=== PATIENT | female | born 1965 | race Caucasian/White ===

== ENCOUNTER → 2017-06-02 | Outpatient (CLI) | payer OTHER ==
[~2017-06-02] MED LIST: PRINZIDE 25 MG-1 TAB PO; TYLENOL PM EXTR1 TA1 PO
== END ==
LOC: COL.RAD 08:11
DX: D13.5 Benign neoplasm of extrahepatic bile ducts (principal)

== ENCOUNTER → 2017-06-28 | Outpatient (CLI) | payer OTHER | LOC: MC.RAD 13:14 | DX: Z12.31 Encounter for screening mammogram for malignant neoplasm of breast (principal); D24.1 Benign neoplasm of right breast; D24.2 Benign neoplasm of left breast; Z98.82 Breast implant status ==

== ENCOUNTER → 2018-07-20 | Outpatient (CLI) | payer BC | LOC: MC.RAD 11:25 | DX: Z12.31 Encounter for screening mammogram for malignant neoplasm of breast (principal); Z98.82 Breast implant status ==

== ENCOUNTER 2018-09-26 08:49 | Outpatient (RCR) | payer BC | END 2018-10-26 11:34 | disposition home or self-care (01) | LOC: WSC 08:49 | DX: M47.812 Spondylosis without myelopathy or radiculopathy, cervical region (principal); Z79.899 Other long term (current) drug therapy; R51 Headache ==

== ENCOUNTER → 2019-09-11 | Outpatient (CLI) | payer BC | LOC: MC.RAD 11:17 | DX: Z12.31 Encounter for screening mammogram for malignant neoplasm of breast (principal); Z98.82 Breast implant status ==

== ENCOUNTER → 2020-06-12 | Outpatient (CLI) | payer BC | LOC: ZCOL.LAB 16:46 | DX: Z20.828 Contact with and (suspected) exposure to other viral communicable diseases (principal) ==

== ENCOUNTER → 2020-09-15 | Outpatient (CLI) | payer BC | LOC: MC.RAD 07:30 | DX: Z12.31 Encounter for screening mammogram for malignant neoplasm of breast (principal); Z98.82 Breast implant status ==

== ENCOUNTER 2021-09-19 11:49 | Emergency (ER) | payer BC ==
[~2021-09-19] VITALS: Ht 163.8 cm; Wt 74.1 kg
[2021-09-19] MEDS ORDERED: CEPHALEXIN500 M1 PO (14:36)
[2021-09-19 14:54] VITALS: BP 133/70; PULSE 79; TEMP 98.1
== END 2021-09-19 14:56 | disposition home or self-care (01) ==
LOC: COL.ER 11:49
DX: S60.453A Superficial foreign body of left middle finger, initial encounter (principal); I10 Essential (primary) hypertension; Z79.899 Other long term (current) drug therapy; W45.8XXA Other foreign body or object entering through skin, initial encounter

== ENCOUNTER 2022-08-06 05:57 | Day surgery (SDC) | payer BC ==
[~2022-08-06] VITALS: Ht 162.6 cm; Wt 68.2 kg
[~2022-08-06 05:57] MED LIST changes: +CEPHALEXIN500 M1 PO
[2022-08-06 06:53] VITALS: BP 131/86; PULSE 68; TEMP 96.4
[2022-08-06] MEDS ORDERED: PRIL40 PO (07:03)
[2022-08-06] MEDS ORDERED: WELLBUTRIN XL150 MG PO (07:03)
[2022-08-06] MEDS ORDERED: AMBIEN 5MG TABLE5 MG PO (07:04)
[2022-08-06] MEDS ORDERED: PRINZIDE 25 MG-1 TAB PO (07:04)
[2022-08-06] MEDS ORDERED: ESTRACE 1MG1 MG/TAB PO (07:05)
[2022-08-06] MEDS ORDERED: CALTRATE 600 +1 TAB PO (07:06)
[2022-08-06] MEDS ORDERED: ADVIL200 MG PO (07:06)
[2022-08-06 07:20] VITALS: BP 120/69; PULSE 69; TEMP 97
--- NOTE | 2022-08-06 07:20 | NUR ---
The patient arrived back to [facility] from the endoscopy suite at this time. The patient ambulated from the cart the recliner in her room with the stand by assistance of two nurses and appeared to tolerate the activity well. Post procedure vital signs were started time. The patient agrees to try some grape juice at this time. Call light is within reach. Warm blanket provided. Denies any further needs.
[2022-08-06 07:35] VITALS: BP 119/76; PULSE 65
--- NOTE | 2022-08-06 07:35 | NUR ---
Dr. Collins has spoke with the patient and her about the findings of the procedure. Discharge instructions were reviewed with the patient and her at this time. They both verbalize understanding and have no questions. The patient's IV to her right hand was removed and a pressure dressing was applied to the site. The nurse instructed the patient to get dressed and notify the staff when she is ready to be escorted out.
--- NOTE | 2022-08-06 07:45 | NUR ---
The patient was escorted out via wheelchair to a private vehicle by SHRADDHA Keating. The patient's belongings and discharge paperwork were sent with her. The patient's friend, Fransisco, is here to drive the patient home.
== END 2022-08-06 07:45 | disposition home or self-care (01) ==
LOC: SDCO 05:57
DX: K29.50 Unspecified chronic gastritis without bleeding (principal); K21.9 Gastro-esophageal reflux disease without esophagitis; Z79.899 Other long term (current) drug therapy
CPT/HCPCS: J2704; J7120

== ENCOUNTER → 2023-02-02 | Outpatient (CLI) | payer BC ==
[~2023-02-02] MED LIST changes: +ADVIL200 MG PO; +AMBIEN 5MG TABLE5 MG PO; +CALTRATE 600 +1 TAB PO; +ESTRACE 1MG1 MG/TAB PO; +PRIL40 PO; +WELLBUTRIN XL150 MG PO
== END ==
LOC: MC.RAD 07:04
DX: Z12.31 Encounter for screening mammogram for malignant neoplasm of breast (principal)

== ENCOUNTER 2023-02-08 13:00 | Outpatient (RCR) | payer OTHER | END 2023-02-08 16:00 | disposition home or self-care (01) | LOC: WSOT 13:00 | DX: G56.03 Carpal tunnel syndrome, bilateral upper limbs (principal) ==

== ENCOUNTER 2024-09-06 08:30 | Outpatient (RCR) | payer BC | END 2024-09-15 | disposition home or self-care (01) | LOC: WSPT | DX: M54.12 Radiculopathy, cervical region (principal); M48.02 Spinal stenosis, cervical region; Z98.1 Arthrodesis status ==